=== PATIENT | male | born 1980 ===

== ENCOUNTER 2022-11-03 16:13 | Outpatient (CLI) | payer OTHER | END 2022-11-04 11:05 | disposition home or self-care (01) | LOC: RAD 16:13 | PROVIDERS: ATTEND Radiology Diagnostic Radiology | DX: S99.921A Unspecified injury of right foot, initial encounter (principal) ==

== ENCOUNTER → 2022-11-03 | Emergency (ER) | payer OTHER | END | disposition home or self-care (01) | LOC: ER 17:01 | DX: K52.9 Noninfective gastroenteritis and colitis, unspecified (principal) ==